=== PATIENT | male | born 2000 | race African-American/Black ===

== ENCOUNTER 2022-01-22 18:01 | Emergency (ER) | payer OTHER ==
[2022-01-22] MEDS ORDERED: ACETAMINOPHEN 500 MG TAB ONE (18:35)
[2022-01-22] MEDS ORDERED: LIDOCAINE 1% MPF 30 ML VIAL ONE (18:35)
[2022-01-22] MEDS ORDERED: LIDOCAINE VISCOUS 2% SOLN 15 ML UDC ONE (18:35)
--- NOTE | 2022-01-22 19:43 | RAD REPORT ---
EXAM DESCRIPTION: RAD - Nasal Bones - 01/22/2022 7:29 pm CLINICAL HISTORY: Nasal pain FINDINGS: Lucency within the nasal bone probably a nondisplaced fracture. There is also a chip fracture from the nasal spine of the maxilla
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
[2022-01-23 00:25] VITALS: BP 134/88; TEMP 98.4; O2SAT 100
== END 2022-01-22 21:52 | disposition home or self-care (01) ==
LOC: EDBD 18:01 → ER 18:01
PROC: 0CQ0XZZ Repair Upper Lip, External Approach (ICD-10-PCS; principal; 2022-01-22)
DX: S02.2XXA Fracture of nasal bones, initial encounter for closed fracture (principal); S01.511A Laceration without foreign body of lip, initial encounter
CPT/HCPCS: 70160; 70450; 70486; 72125; 76377

== ENCOUNTER 2022-03-24 15:21 | Emergency (ER) | payer OTHER ==
[2022-03-24] MEDS ORDERED: IBUPROFEN 200 MG TAB PO ONE (16:24)
[2022-03-24] MEDS ORDERED: IBUPROFEN 400 MG TAB ONE (16:24)
--- NOTE | 2022-03-24 16:47 | RAD REPORT ---
EXAM DESCRIPTION: RAD - Knee Left 3 View - 03/24/2022 4:42 pm CLINICAL HISTORY: PAIN, trauma history COMPARISON: No comparisons FINDINGS: No fracture, dislocation or periosteal reaction.No joint effusion seen. No joint space silviano rowing. No soft tissue abnormality. IMPRESSION: Negative left knee. Clinical concerns for internal derangement or occult bony injury could be further assessed with MR im aging.
[2022-03-24] MEDS ORDERED: LIDOCAINE 1% W/EPI 1:100,000 30 ML VIAL ONE (17:13)
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
--- NOTE | 2022-03-24 17:39 | EDPHYS ---
Physician Documentation [facility] Name: Jefry Marie Age: 21 yrs Sex: Male : 2000 Arrival Date: 03/24/2022 Time: 15:22 Bed 7 Private MD: ED Physician Arnaldo Wick HPI: 03/24 15:34 This 21 yrs old Black Male presents to ER via Unassigned with unknown complaint. kdr 15:34 . kdr 16:24 Onset: The symptoms/episode began/occurred just prior to arrival, this morning. kdr Severity of symptoms: At their worst the symptoms were severe incapacitating in the emergency department the symptoms have improved moderately. The patient has not experienced similar symptoms in the past. Patient had a cardiac ablation at [facility] this morning and was discharged at noon . Historical: - Allergies: 15:35 No Known Allergies; ph - PMHx: 15:35 None; ph - Immunization history:: Adult Immunizations up to date. - Social history:: Smoking status: unknown. ROS: 16:24 Constitutional: Negative for fever, chills, and weight loss, Eyes: Negative for injury, kdr pain, redness, and discharge, ENT: Negative for injury, pain, and discharge, Neck: Negative for injury, pain, and swelling, Respiratory: Negative for shortness of breath, cough, wheezing, and pleuritic chest pain, Back: Negative for injury and pain, : Negative for injury, bleeding, discharge, and swelling, MS/Extremity: Negative for injury and deformity, Skin: Negative for injury, rash, and discoloration, Psych: Negative for depression, anxiety, suicide ideation, homicidal ideation, and hallucinations, Allergy/Immunology: Negative for hives, rash, and allergies, Endocrine: Negative for neck swelling, polydipsia, polyuria, polyphagia, and marked weight changes, Hematologic/Lymphatic: Negative for swollen nodes, abnormal bleeding, and unusual bruising. 16:24 Cardiovascular: Positive for palpitations, Negative for chest pain, edema, orthopnea. 16:24 Abdomen/GI: Positive for nausea, Negative for vomiting, constipation, abdominal cramps. 16:24 Neuro: Positive for headache, Patient states when he is laying down his headache is mild to moderate. When he sits up the headache is much worse and feels like something is hitting his head with a hammer. Exam: 15:34 ECG was reviewed by the Attending Physician. kdr 16:24 Constitutional: This is a well developed, well nourished patient who is awake, alert, kdr and in no acute distress. Head/Face: Normocephalic, atraumatic. Eyes: Pupils equal round and reactive to light, extra-ocular motions intact. Lids and lashes normal. Conjunctiva and sclera are non-icteric and not injected. Cornea within normal limits. Periorbital areas with no swelling, redness, or edema. Neck: Trachea midline, no thyromegaly or masses palpated, and no cervical lymphadenopathy. Supple, full range of motion without nuchal rigidity, or vertebral point tenderness. No Meningismus. Chest/axilla: Normal chest wall appearance and motion. Nontender with no deformity. No lesions are appreciated. Cardiovascular: Regular rate and rhythm with a normal S1 and S2. No gallops, murmurs, or rubs. Normal PMI, no JVD. No pulse deficits. Respiratory: Lungs have equal breath sounds bilaterally, clear to auscultation and percussion. No rales, rhonchi or wheezes noted. No increased work of breathing, no retractions or nasal flaring. Abdomen/GI: Soft, non-tender, with normal bowel sounds. No distension or tympany. No guarding or rebound. No evidence of tenderness throughout. Back: No spinal tenderness. No costovertebral tenderness. Full range of motion. Skin: Warm, dry with normal turgor. Normal color with no rashes, no lesions, and no evidence of cellulitis. MS/ Extremity: Pulses equal, no cyanosis. Neurovascular intact. Full, normal range of motion. Neuro: Awake and alert, GCS 15, oriented to person, place, time, and situation. Cranial nerves II-XII grossly intact. Motor strength 5/5 in all extremities. Sensory grossly intact. Cerebellar exam normal. Normal gait. Psych: Awake, alert, with orientation to person, place and time. Behavior, mood, and affect are within normal limits. Vital Signs: 15:33 BP 152 / 96; Pulse 49; Resp 18; Temp 98.0; Pulse Ox 100% on R/A; Weight 63.5 kg; Height ph 6 ft. 0 in. (182.88 cm); 17:53 BP 142 / 89; Pulse 51; Resp 18; Temp 98.0; Pulse Ox 99% on R/A; ph 15:33 Body Mass Index 18.99 (63.50 kg, 182.88 cm) ph Laceration: 17:01 Wound Repair of 1cm ( 0.4in ) subcutaneous laceration to lower lip. Irregularly kdr shaped.. Minimal contamination.. Hemostasis noted.. Puncture wound - tooth. Distal neuro/vascular/tendon intact. Anesthesia: Local anesthetic administered with 2 mls of 1% lidocaine w/ Epi. Wound prep: Extensive cleansing with hibiclenz by me, Wound explored, Copious irrigation. Skin closed with 4 4-0 Vicryl using simple sutures and sterile technique. Dressed with Neosporin. Patient tolerated well. MDM: 16:24 Data reviewed: vital signs, nurses notes, lab test result(s), radiologic studies. kdr Counseling: I had a detailed discussion with the patient and/or guardian regarding: the historical points, exam findings, and any diagnostic results supporting the discharge/admit diagnosis, lab results, radiology results. 17:38 Patient medically screened. kdr 03/24 16:06 Order name: Knee Left 3 View XRAY; Complete Time: 17:14 kdr 03/24 16:06 Order name: Misc. Order: Clean lip wound; Complete Time: 16:49 kdr 03/24 17:40 Order name: Sudhakar wrap-joint: Left knee ; Complete Time: 17:51 kdr EC:34 Rate is 63 beats/min. Rhythm is regular, Sinus arrythmia with No ectopy, 1st degree kdr heart block. QRS [place] is Normal. DC interval is normal. QRS interval is normal. QT interval is normal. No Q waves. Clinical impression: NSR w/ Non-specific ST/T Changes. Administered Medications: 16:30 Drug: Ibuprofen 600 mg Route: PO; ph 17:51 Follow up: Response: No adverse reaction ph 17:35 Drug: Lidocaine-Epinephrine -1%: (1:100,000) 1 vials Volume: 20 ml; Route: Infiltration;ph 17:52 Follow up: Response: No adverse reaction ph Disposition Summary: 03/24/22 17:38 Discharge Ordered Location: Home kdr Problem: new kdr Symptoms: have improved kdr Condition: Stable kdr Diagnosis - Laceration without foreign body of lip kdr - Pain in left knee kdr Followup: kdr - With: Private Physician - When: 2 - 3 days - Reason: If symptoms return, Further diagnostic work-up, Recheck today's complaints, Continuance of care, Re-evaluation by your physician Discharge Instructions: - Discharge Summary Sheet kdr - Joint Pain kdr - Musculoskeletal Pain kdr - How to Use Cold Therapy, [id number] kdr - Sutures, Devora, or Adhesive Wound Closure, [id number] kdr - Joint Pain, [id number] kdr Forms: - Medication Reconciliation Form kdr - Thank You Letter kdr - Antibiotic Education kdr Prescriptions: - Cephalexin 500 mg Oral Capsule - take 1 capsule by ORAL route every 8 hours for 10 days; 30 capsule; Refills: 0, kdr Product Selection Permitted Signatures: Dispatcher [employer] EDMS Arnaldo Wick MD MD kdr Laury Farrell RN RN ph Corrections: (The following items were deleted from the chart) 17:04 17:01 Wound Repair of 1cm ( 0.4in ) subcutaneous laceration to lower lip. Irregularly kdr shaped.. Minimal contamination.. Hemostasis noted.. Puncture wound - tooth. Distal neuro/vascular/tendon intact. Anesthesia: Local anesthetic administered with 2 mls of 1% lidocaine w/ Epi. Wound prep: Extensive cleansing with hibiclenz by me, Wound explored, Copious irrigation. Skin closed with 2 4-0 Vicryl using simple sutures and sterile technique. Dressed with Neosporin. Patient tolerated well. kdr 17:37 17:01 Wound Repair of 1cm ( 0.4in ) subcutaneous laceration to lower lip. Irregularly kdr shaped.. Minimal contamination.. Hemostasis noted.. Puncture wound - tooth. Distal neuro/vascular/tendon intact. Anesthesia: Local anesthetic administered with 2 mls of 1% lidocaine w/ Epi. Wound prep: Extensive cleansing with hibiclenz by me, Wound explored, Copious irrigation. Skin closed with 2 4-0 Vicryl using simple sutures and sterile technique. Dressed with Neosporin. Patient tolerated well. kdr
[2022-03-24 17:59] VITALS: TEMP 98
[2022-03-24 18:00] VITALS: BP 142/89; O2SAT 99
== END 2022-03-24 17:54 | disposition home or self-care (01) ==
LOC: ER 15:21
PROC: 0CQ1XZZ Repair Lower Lip, External Approach (ICD-10-PCS; principal; 2022-03-24)
DX: S01.511A Laceration without foreign body of lip, initial encounter (principal); M25.562 Pain in left knee
CPT/HCPCS: 99284